=== PATIENT | female | born 1995 | race Caucasian/White ===

== ENCOUNTER 2019-04-11 04:47 | Emergency (ER) | payer SELFPAY ==
[2019-04-11] MEDS ORDERED: ONDANSETRON HCL INJ/PF 4 MG/2 ML SDV IV ONE (05:19)
[2019-04-11] MEDS ORDERED: FENTANYL CITRATE INJ/PF 100 MCG/2 ML AMPUL IV ONE (05:19)
--- NOTE | 2019-04-11 05:22 | ER Document Report ---
ED GI/ - General Chief Complaint: Flank Pain Stated Complaint: LOWER RIGHT SIDE PAIN,VOMITING Time Seen by Provider: 04/11/19 05:13 Notes: Patient is a 23-year-old female presents to the emergency department with right flank and right upper quadrant abdominal pain. Patient voices she was sleeping when she suddenly awoken with generalized right flank and right upper quadrant pain. Patient voices started in her right flank but has progressed to her right upper quadrant. States it is dull in nature. Patient states she is also nauseated. Patient's denying any diarrhea, dysuria. Patient is admitting to malodorous vaginal discharge. Patient is unsure of her last menstrual cycle. Patient has no medical problems, takes no daily medications, has no allergies. TRAVEL OUTSIDE OF THE [place] IN LAST 30 DAYS: No Past Medical History - General Information source: Patient - Social History Smoking Status: Current Some Day Smoker Family History: Reviewed & Not Pertinent Patient has suicidal ideation: No Patient has homicidal ideation: No Review of Systems - Review of Systems Constitutional: denies: Fever EENT: No symptoms reported Cardiovascular: No symptoms reported Respiratory: No symptoms reported Gastrointestinal: See HPI Genitourinary: See HPI Female Genitourinary: See HPI Musculoskeletal: See HPI Skin: No symptoms reported Hematologic/Lymphatic: No symptoms reported Neurological/Psychological: No symptoms reported Physical Exam - Vital signs Vitals: Temp Pulse Resp BP Pulse Ox 98.2 F 84 18 165/82 H 97 04/11/19 04:58 04/11/19 04:58 04/11/19 04:58 04/11/19 04:58 04/11/19 04:58 - Notes Notes: GENERAL: Alert, interacts well. No acute distress. HEAD: Normocephalic, atraumatic. EYES: Pupils equal, round, and reactive to light. Extraocular movements intact. ENT: Oral mucosa moist, tongue midline. NECK: Full range of motion. Supple. Trachea midline. LUNGS: Clear to auscultation bilaterally, no wheezes, rales, or rhonchi. No respiratory distress. HEART: Regular rate and rhythm. No murmur ABDOMEN: Morbidly obese, soft, right upper quadrant abdominal pain noted, othe rwise abdominal exam benign. non-distended. Bowel sounds present in all 4 quadrants. EXTREMITIES: Moves all 4 extremities spontaneously. No edema, normal radial and dorsalis pedis pulses bilaterally. No cyanosis. BACK: no cervical, thoracic, lumbar midline tenderness. No saddle anesthesia, normal distal neurovascular exam. No CVA tenderness noted bilaterally. NEUROLOGICAL: Alert and oriented x3. Normal speech. cranial nerves II through XII grossly intact. PSYCH: Normal affect, normal mood. SKIN: Warm, dry, normal turgor. No rashes or lesions noted. Course - Re-evaluation Re-evalutation: 04/11/19 06:51 Pelvic performed with WILBER Boles at bedside. Brownish-yellow malodorous discharge noted in the cul-de-sac, no cervical motion tenderness, no adnexal tenderness noted bilaterally. 04/11/19 07:25 Laboratory 04/11/19 04/11/19 04/11/19 06:00 06:00 06:00 WBC 5.8 RBC 4.73 Hgb 13.2 Hct 38.5 MCV 81 MCH 28.0 MCHC 34.4 RDW 13.4 Plt Count 174 Lymph % (Auto) 23.3 [place] % (Auto) 7.9 Eos % (Auto) 1.8 Baso % (Auto) 0.2 Absolute Neuts (auto) 3.9 Absolute Lymphs (auto) 1.3 Absolute Monos (auto) 0.5 Absolute Eos (auto) 0.1 Absolute Basos (auto) 0.0 Seg Neutrophils % 66.8 Sodium 138.2 Potassium 3.9 Chloride 104 Carbon Dioxide 25 Anion Gap 9 BUN 13 Creatinine 0.88 Est GFR ( Amer) > 60 Est GFR (MDRD) Non-Af > 60 Glucose 105 Calcium 9.3 Total Bilirubin 0.4 Direct Bilirubin 0.0 Neonat Total Bilirubin Not Reportable Neonat Direct Bilirubin Not Reportable Neonat Indirect Bili Not Reportable AST 35 ALT 51 Alkaline Phosphatase 53 Total Protein 6.9 Albumin 4.0 Lipase 54.7 Urine Color YELLOW Urine Appearance SLIGHTLY-CLOUDY Urine pH 6.0 Ur Specific [place] 1.021 Urine Protein NEGATIVE Urine Glucose (UA) NEGATIVE Urine Ketones NEGATIVE Urine Blood SMALL H Urine Nitrite NEGATIVE Urine Bilirubin NEGATIVE Urine Urobilinogen 2.0 H Ur Leukocyte Esterase NEGATIVE Urine WBC (Auto) 4 Urine RBC (Auto) 1 Squamous Epi Cells Auto 6 Urine Mucus (Auto) RARE Urine Ascorbic Acid NEGATIVE Urine HCG, Qual Trichomonas (Wet Prep) Vaginal WBC Vaginal Yeast 04/11/19 04/11/19 06:00 06:50 WBC RBC Hgb Hct MCV MCH MCHC RDW Plt Count Lymph % (Auto) [place] % (Auto) Eos % (Auto) Baso % (Auto) Absolute Neuts (auto) Absolute Lymphs (auto) Absolute Monos (auto) Absolute Eos (auto) Absolute Basos (auto) Seg Neutrophils % Sodium Potassium Chloride Carbon Dioxide Anion Gap BUN Creatinine Est GFR ( Amer) Est GFR (MDRD) Non-Af Glucose Calcium Total Bilirubin Direct Bilirubin Neonat Total Bilirubin Neonat Direct Bilirubin Neonat Indirect Bili AST ALT Alkaline Phosphatase Total Protein Albumin Lipase Urine Color Urine Appearance Urine pH Ur Specific [place] Urine Protein Urine Glucose (UA) Urine Ketones Urine Blood Urine Nitrite Urine Bilirubin Urine Urobilinogen Ur Leukocyte Esterase Urine WBC (Auto) Urine RBC (Auto) Squamous Epi Cells Auto Urine Mucus (Auto) Urine Ascorbic Acid Urine HCG, Qual NEGATIVE Trichomonas (Wet Prep) NO TRICHOMONAS SEEN Vaginal WBC FEW WBCS SEEN Vaginal Yeast NO YEAST SEEN Abdomen Ultrasound 04/11/19 05:19 IMPRESSION: Fatty infiltration of the liver, otherwise unremarkable. Patient's labs revealed no change in her CBC or CMP. Patient's urine shows small blood and 1 RBC, patient's wet mount is negative. Patient wishes to decline prophylactic gonorrhea and Chlamydia testing at this time. Patient's ultrasound showed no signs of cholecystitis. I have had a lengthy discussion with patient at bedside about further testing to include a CT scan. Patient voices she overall does feel better. Reexamined of patient's abdomen continues to reveal no pain in her right lower quadrant, left lower quadrant, left upper quadrant. Slight right upper quadrant epigastric pain noted. Discussed the use of [id number] Zantac or Pepcid. Discussed being treated here in the emergency department. Patient states she has some at home and wishes to take her home Zantac. Discussed with patient potential diagnosis of kidney stone based on her right flank pain radiating around to her right upper quadrant. No signs of urinary tract infection, patient has no fever. Patient wishes to decline CT imaging at this time. Discussed with patient close follow-up with primary care provider with close return precautions. Patient stable for discharge. - Vital Signs Vital signs: Temp Pulse Resp BP Pulse Ox 98.2 F 84 18 165/82 H 97 04/11/19 04:58 04/11/19 04:58 04/11/19 04:58 04/11/19 04:58 04/11/19 04:58 - Laboratory Result Diagrams: 04/11/19 06:00 04/11/19 06:00 Laboratory results interpreted by me: 04/11/19 06:00 Urine Blood SMALL H Urine Urobilinogen 2.0 H Discharge - Discharge Clinical Impression: Nausea Abdominal pain Qualifiers: Abdominal location: right upper quadrant Qualified Code(s): R10.11 - Right upper quadrant pain Condition: Stable Disposition: HOME, SELF-CARE Instructions: Antinausea Medication ([facility]), Abdominal Pain ([facility]) Additional Instructions: As we discussed you have been seen and treated in the emergency department for your abdominal pain and nausea. Your test revealed no signs of obvious abnormalities. Please follow-up with your primary care provider in the next 12 to 24 hours. Use nausea medication only as needed. Please return to the emergency room for any concerns. Prescriptions: Ondansetron HCl [Zofran 8 mg Tablet] 8 mg PO Q6 PRN #5 tablet PRN Reason: Forms: Return to Work
[2019-04-11 06:36] LABS: ABSOLUTE EOSINOPHILS # (AUTO) 0.1 10^3/uL (0.0-0.6); ABSOLUTE LYMPHOCYTES (AUTO) 1.3 10^3/uL (0.5-4.7); ABSOLUTE MONOCYTES (AUTO) 0.5 10^3/uL (0.1-1.4); ABSOLUTE NEUT (AUTO) 3.9 10^3/uL (1.7-8.2); BASOPHILS % (AUTO) 0.2 % (0-2); EOSINOPHILS % (AUTO) 1.8 % (0-6); HEMATOCRIT 38.5 % (36.0-47.0); HEMOGLOBIN 13.2 g/dL (12.0-15.5); LYMPHOCYTES % (AUTO) 23.3 % (13-45); MEAN CORPUSCULAR HGB CONC 34.4 g/dL (32.0-36.0); MEAN CORPUSCULAR VOLUME 81 fl (80-97); MONOCYTES % (AUTO) 7.9 % (3-13); PLATELET COUNT 174 10^3/uL (150-450); RED BLOOD COUNT 4.73 10^6/uL (3.72-5.28); RED CELL DISTRIBUTION WIDTH 13.4 % (11.5-14.0); SEGMENTED NEUTROPHILS % (AUTO) 66.8 % (42-78); TOTAL CELLS COUNTED % (AUTO) 100 %; WHITE BLOOD COUNT 5.8 10^3/uL (4.0-10.5)
[2019-04-11 06:44] LABS: APPEARANCE,URINE SLIGHTLY-CLOUDY; BILIRUBIN,URINE NEGATIVE (NEGATIVE); COLOR,URINE YELLOW; GLUCOSE, URINE NEGATIVE (NEGATIVE); KETONES,URINE NEGATIVE (NEGATIVE); LEUKOCYTE ESTERASE,URINE NEGATIVE (NEGATIVE); NITRITE,URINE NEGATIVE (NEGATIVE); PROTEIN,URINE NEGATIVE (NEGATIVE); URINE SPECIFIC GRAVITY 1.021
[2019-04-11 06:46] LABS: ALKALINE PHOSPHATASE 53 U/L (38-126); ANION GAP 9 (5-19); ASPARTATE AMINO TRANSFERASE 35 U/L (14-36); BILIRUBIN,TOTAL 0.4 mg/dL (0.2-1.3); BLOOD UREA NITROGEN 13 mg/dL (7-20); CALCIUM 9.3 mg/dL (8.4-10.2); CARBON DIOXIDE 25 mmol/L (22-30); CHLORIDE 104 mmol/L (98-107); GLUCOSE 105 mg/dL (75-110); POTASSIUM 3.9 mmol/L (3.6-5.0); TOTAL PROTEIN 6.9 g/dL (6.3-8.2)
--- NOTE | 2019-04-11 07:08 | RADIOLOGY REPORT (SQ) ---
Ultrasound right upper quadrant on 04/11/2019 at 6:30 AM CLINICAL INDICATION: Right upper quadrant pain COMPARISON: None FINDINGS: Multiple sonographic images are obtained throughout the right upper quadrant, both transverse and sagittal images are obtained. Examination is somewhat limited by patient body habitus and bowel gas. Limited visualized pancreas is unremarkable. There is increased echogenicity in the liver consistent with fatty infiltration. No focal liver lesion is noted. No gallstones, gallbladder wall thickening or pericholecystic fluid is noted. There is some focal fatty sparing in the liver adjacent to the gallbladder. Right kidney shows no hydronephrosis. No free fluid is noted in the right upper quadrant. The common duct measures 3 mm which is within normal limits mitigating against obstruction of the biliary tree. IMPRESSION: Fatty infiltration of the liver, otherwise unremarkable.
[2019-04-11 07:17] LABS: T.VAGINALIS (WET MOUNT) NO TRICHOMONAS SEEN; WBCS (WET MOUNT) FEW WBCS SEEN; YEAST (WET MOUNT) NO YEAST SEEN
[2019-04-11 07:36] VITALS: BP 112/63
[2019-04-11 08:47] LABS: CHLAM PCR NOT DETECTED (NOT DETECT)
== END 2019-04-11 07:36 | disposition home or self-care (01) ==
LOC: ER 04:47
DX: R10.11 Right upper quadrant pain (principal); R10.13 Epigastric pain; R10.9 Unspecified abdominal pain; R11.0 Nausea; F17.200 Nicotine dependence, unspecified, uncomplicated; N89.8 Other specified noninflammatory disorders of vagina; R31.9 Hematuria, unspecified; K76.0 Fatty (change of) liver, not elsewhere classified
CPT/HCPCS: 36415; 87210; 83690; 85025; 81025; 80053; 81001; 87491; 87591; 76705; J3010; J2405; 96374; 96375; 99284

== ENCOUNTER → 2019-10-19 | Outpatient (CLI) | payer OTHER ==
--- NOTE | 2019-10-19 14:22 | RADIOLOGY REPORT (SQ) ---
EXAM DESCRIPTION: U/S NON-OB PELVIS TV W/O DOP IMAGES COMPLETED DATE/TIME: 10/19/2019 1:58 pm REASON FOR STUDY: N92.1 EXCESSIVE AND FREQUENT MENSTRUATION WITH IRREGULAR CYCLE, E66.01 MORB N92.1 EXCESSIVE AND FREQUENT MENSTRUATION WITH IRREGULAR CYC E66.01 MORBID (SEVERE) OBESITY DUE TO EXCESS CALORIES COMPARISON: None. TECHNIQUE: Dynamic and static grayscale images acquired of the pelvis via transvaginal approach and recorded on PACS. Additional selected color Doppler and spectral images recorded. LIMITATIONS: Limited due to body habitus. FINDINGS: UTERUS: Unremarkable in size and contour measuring 7.7 x 5.2 x 5.3 cm. ENDOMETRIAL STRIPE: Thickening of the endometrial stripe measuring 2.2 cm. CERVIX: Cervix measures 2.3 cm. Multiple nabothian cyst. RIGHT OVARY AND DOPPLER: Ovary not visualized. LEFT OVARY AND DOPPLER: Ovary not visualized. FREE FLUID: None noted. OTHER: No other significant finding. IMPRESSION: 1. Limited exam secondary to body habitus. Ovaries not visualized. 2. Thickened endometrial stripe measuring up to 2.2 cm, possibly secondary to intraluminal clot [place] endometrial hyperplasia/carcinoma is not excluded. Recommend short-term follow-up to ensure reso lution. TECHNICAL DOCUMENTATION: JOB ID: [id number] 2010 [employer]- All Rights Reserved Rev Reading location - IP/workstation name: [email or web address]
== END ==
LOC: RAD 13:31
PROVIDERS: ATTEND Obstetrics & Gynecology Gynecology
DX: N92.1 Excessive and frequent menstruation with irregular cycle (principal)
CPT/HCPCS: 76830

== ENCOUNTER 2020-03-31 14:10 | Emergency (ER) | payer OTHER ==
--- NOTE | 2020-03-31 14:50 | ER Document Report ---
ED Medical Screen (RME) - General Chief Complaint: Back Pain Stated Complaint: BACK PAIN,NAUSEA,HEADACHE Time Seen by Provider: 03/31/20 14:42 Primary Care Provider: LUZ MARINA DE PAZ MD [Primary Care Provider] - Follow up as needed Mode of Arrival: Ambulatory Information source: Patient Notes: 24-year-old female patient presents emergency department with nausea, int ermittent headaches and back pain. Patient denies any vomiting, diarrhea, fever or chills. She does report chronic back pain, states this feels similar but it is getting worse over the last week. She denies any dysuria, urinary frequency or abnormal vaginal discharge. Patient is alert, oriented, no acute distress noted. I have greeted and performed a rapid initial assessment of this patient. A comprehensive ED assessment and evaluation of the patient, analysis of test results and completion of the medical decision making process will be conducted by additional ED providers. I have specifically instructed the patient or family members with the patient to immediately return to any nursing staff should anything change in the patient's condition or with their chief complaint. TRAVEL OUTSIDE OF THE [place] IN LAST 30 DAYS: No - Related Data Allergies/Adverse Reactions: No Known Allergies Allergy (Verified 03/31/20 14:44) Past Medical History - Social History Frequency of alcohol use: Occasional Physical Exam - Vital signs Vitals: Temp Pulse Resp BP Pulse Ox 97.5 F 78 20 134/95 H 96 03/31/20 14:34 03/31/20 14:34 03/31/20 14:34 03/31/20 14:34 03/31/20 14:34 Course - Vital Signs Vital signs: Temp Pulse Resp BP Pulse Ox 97.5 F 78 20 134/95 H 96 03/31/20 14:34 03/31/20 14:34 03/31/20 14:34 03/31/20 14:34 03/31/20 14:34 Doctor's Discharge - Discharge Referrals: LUZ MARINA DE PAZ MD [Primary Care Provider] - Follow up as needed
[2020-03-31] MEDS ORDERED: ONDANSETRON 4 MG TAB.RAPDIS PO ONE (14:52)
[2020-03-31 15:53] LABS: ABSOLUTE EOSINOPHILS # (AUTO) 0.1 10^3/uL (0.0-0.6); ABSOLUTE LYMPHOCYTES (AUTO) 1.8 10^3/uL (0.5-4.7); ABSOLUTE MONOCYTES (AUTO) 0.4 10^3/uL (0.1-1.4); ABSOLUTE NEUT (AUTO) 3.1 10^3/uL (1.7-8.2); BASOPHILS % (AUTO) 0.3 % (0-2); EOSINOPHILS % (AUTO) 2.6 % (0-6); HEMATOCRIT 38.9 % (36.0-47.0); HEMOGLOBIN 13.2 g/dL (12.0-15.5); LYMPHOCYTES % (AUTO) 33.1 % (13-45); MEAN CORPUSCULAR HEMOGLOBIN 26.3 pg (27.0-33.4); MEAN CORPUSCULAR HGB CONC 33.9 g/dL (32.0-36.0); MEAN CORPUSCULAR VOLUME 78 fl (80-97); MONOCYTES % (AUTO) 6.6 % (3-13); PLATELET COUNT 196 10^3/uL (150-450); RED CELL DISTRIBUTION WIDTH 15.2 % (11.5-14.0); SEGMENTED NEUTROPHILS % (AUTO) 57.4 % (42-78); TOTAL CELLS COUNTED % (AUTO) 100 %; WHITE BLOOD COUNT 5.4 10^3/uL (4.0-10.5)
[2020-03-31 15:58] LABS: APPEARANCE,URINE CLEAR; BILIRUBIN,URINE NEGATIVE (NEGATIVE); COLOR,URINE YELLOW; GLUCOSE, URINE NEGATIVE (NEGATIVE); KETONES,URINE NEGATIVE (NEGATIVE); LEUKOCYTE ESTERASE,URINE TRACE (NEGATIVE); NITRITE,URINE NEGATIVE (NEGATIVE); PROTEIN,URINE NEGATIVE (NEGATIVE); URINE SPECIFIC GRAVITY 1.023
[2020-03-31 16:07] LABS: ALBUMIN 4.5 g/dL (3.5-5.0); ALKALINE PHOSPHATASE 57 U/L (38-126); ANION GAP 10 (5-19); ASPARTATE AMINO TRANSFERASE 35 U/L (14-36); BILIRUBIN,DIRECT 0.3 mg/dL (0.0-0.4); BILIRUBIN,TOTAL 0.4 mg/dL (0.2-1.3); BLOOD UREA NITROGEN 13 mg/dL (7-20); CALCIUM 9.9 mg/dL (8.4-10.2); CARBON DIOXIDE 27 mmol/L (22-30); CHLORIDE 102 mmol/L (98-107); GLUCOSE 90 mg/dL (75-110); POTASSIUM 4.2 mmol/L (3.6-5.0); TOTAL PROTEIN 7.6 g/dL (6.3-8.2)
--- NOTE | 2020-03-31 20:21 | ER Document Report ---
ED GI/ - General Chief Complaint: Back Pain Stated Complaint: BACK PAIN,NAUSEA,HEADACHE Time Seen by Provider: 03/31/20 14:42 Primary Care Provider: LUZ MARINA DE PAZ MD [EMERITUS] - Follow up as needed Mode of Arrival: Ambulatory Information source: Patient Notes: ED Medical Screen (Yvonne maharaj) - General Chief Complaint: Back Pain Stated Complaint: BACK PAIN,NAUSEA,HEADACHE Time Seen by Provider: 03/31/20 14:42 Primary Care Provider: LUZ MARINA DE PAZ MD [Primary Care Provider] - Follow up as needed Mode of Arrival: Ambulatory Information source: Patient Notes: 24-year-old female patient presents emergency department with nausea, intermitt ent headaches and back pain. Patient denies any vomiting, diarrhea, fever or chills. She does report chronic back pain, states this feels similar but it is getting worse over the last week. She denies any dysuria, urinary frequency or abnormal vaginal discharge. Patient is alert, oriented, no acute distress noted. MY NOTES 24-year-old female arrived by POV with chief complaint of 1 week history of right flank pain ; patient points from her right SI to her right scapular area. She reports for the last 2 days it has been more intense. She works at [employer] and needs a work note. She denies any nausea vomiting dysuria hematuria abuse overuse skin lesions like shingles cough or cold symptoms diarrhea constipation fever chills COVID or delacruz or influenza exposure.. Patient reports she has had a history of chronic back pain in the past. TRAVEL OUTSIDE OF THE [place] IN LAST 30 DAYS: No - HPI Patient complains to provider of: Flank pain Onset: Last week Timing/Duration: Persistent, Worse Quality of pain: Achy Severity at maximum: Moderate Severity in ED: Moderate Pain Level: 2 Location: Right flank Vaginal bleeding (Compared to normal period): None - Related Data Allergies/Adverse Reactions: No Known Allergies Allergy (Verified 03/31/20 14:44) Past Medical History - General Information source: Patient - Social History Smoking Status: Former Smoker Frequency of alcohol use: Occasional Family History: Reviewed & Not Pertinent Review of Systems - Review of Systems Constitutional: See HPI, Recent illness EENT: No symptoms reported Cardiovascular: No symptoms reported Respiratory: No symptoms reported Gastrointestinal: No symptoms reported Genitourinary: No symptoms reported Female Genitourinary: No symptoms reported Musculoskeletal: See HPI, Back pain Skin: No symptoms reported Hematologic/Lymphatic: No symptoms reported Neurological/Psychological: No symptoms reported Physical Exam - Vital signs Vitals: Temp Pulse Resp BP Pulse Ox 97.5 F 78 20 134/95 H 96 03/31/20 14:34 03/31/20 14:34 03/31/20 14:34 03/31/20 14:34 03/31/20 14:34 Interpretation: Hypertensive - General General appearance: Appears well - Middle of its, Alert - HEENT Head: Normocephalic, Atraumatic Eyes: Normal Pupils: PERRL Sinus: Normal Nasal: Normal Mouth/Lips: Normal Mucous membranes: Normal Pharynx: Normal Neck: Normal - Respiratory Respiratory status: No respiratory distress Chest status: Nontender Breath sounds: Normal Chest palpation: Normal - Cardiovascular Rhythm: Regular Heart sounds: Normal auscultation Murmur: No - Abdominal Inspection: Normal Distension: No distension Bowel sounds: Normal Tenderness: Nontender Organomegaly: No organomegaly - Rectal Hemorrhoids: Other - deferred - Genitourinary [place]iman[place] exam: Other - deferred - Back Back: Tender - Tender right SI to the right scapula on percussion. No range of motion problems on flexion extension rotation. - Extremities General upper extremity: Normal inspection, Nontender, Normal color, Normal ROM, Normal temperature General lower extremity: Normal inspection, Nontender, Normal color, Normal ROM, Normal temperature, Normal weight bearing. No: Hector's sign - Neurological Neuro grossly intact: Yes Cognition: Normal Orientation: AAOx4 Carisa Coma Scale Eye Opening: Spontaneous [place] Coma Scale Verbal: Oriented Carisa Coma Scale Motor: Obeys Commands Carisa Coma Scale Total: 15 Speech: Normal Motor strength normal: LUE, RUE, LLE, RLE Sensory: Normal - Psychological Associated symptoms: Normal affect, Normal mood - Skin Skin Temperature: Warm Skin Moisture: Dry Skin Color: Normal Course - Vital Signs Vital signs: Temp Pulse Resp BP Pulse Ox 98.1 F 97 20 144/92 H 100 03/31/20 18:04 03/31/20 18:04 03/31/20 18:04 03/31/20 18:04 03/31/20 18:04 - Laboratory Result Diagrams: 03/31/20 15:10 03/31/20 15:10 Laboratory results interpreted by me: 03/31/20 03/31/20 03/31/20 15:10 15:10 15:10 MCV 78 L MCH 26.3 L RDW 15.2 H ALT 51 H Urine Urobilinogen 2.0 H Ur Leukocyte Esterase TRACE H Discharge - Discharge Clinical Impression: Back pain Qualifiers: Back pain location: thoracic back pain Chronicity: acute Back pain laterality: right Qualified Code(s): M54.6 - Pain in thoracic spine UTI (urinary tract infection) Qualifiers: Urinary tract infection type: acute cystitis Hematuria presence: without hematuria Qualified Code(s): N30.00 - Acute cystitis without hematuria Hypertension Qualifiers: Hypertension type: unspecified Qualified Code(s): I10 - Essential (primary) hypertension Condition: Stable Disposition: HOME, SELF-CARE Instructions: Urinary Tract Infection ([facility]) Additional Instructions: Off work as directed; return to ER as needed; avoid bending lifting or twisting;take medicines as directed encourage fluids Prescriptions: Levofloxacin [Levaquin 500 mg Tablet] 500 mg PO DAILY 5 Days #5 tablet Referrals: LUZ MARINA DE PAZ MD [EMERITUS] - Follow up as needed
[2020-03-31] MEDS ORDERED: LEVOFLOXACIN 500 MG TABLET PO ONE (20:34)
[2020-03-31] MEDS ORDERED: HYDROCODONE/ACETAMINOPHEN 5-325 MG (6 TAB/ER DISP) PO PRN (20:34)
[2020-03-31 21:18] VITALS: BP 123/72
== END 2020-03-31 21:20 | disposition home or self-care (01) ==
LOC: ER 14:10
DX: M54.6 Pain in thoracic spine (principal); N30.00 Acute cystitis without hematuria; I10 Essential (primary) hypertension; R11.0 Nausea; R51.9 Headache, unspecified; Z87.891 Personal history of nicotine dependence
CPT/HCPCS: 99283; 36415; 85025; 81025; 80053; 81001; S0119